=== PATIENT | female | born 1950 | race Caucasian/White ===

== ENCOUNTER 2022-09-25 09:45 | Outpatient (RCR) | payer OTHER, SELFPAY ==
--- NOTE | 2022-07-25 17:05 | PT.OIE ---
Current Diagnoses Other chronic pain (07/25/22) Pain in unspecified joint (07/25/22) Myalgia, other site (07/25/22) Visit Care Team Role Provider Type SAMINA Scott Family Provider Non-Staff Primary Care Provider Specialty: Family Practice Address: [address], [address], [place], [address] Email: Tangela Telles MD Attending Provider Non-Staff Referring Provider Specialty: Neurology Address: [address] [place] [address], [id number] Email: Physical Therapy Initial Evaluation PT-OP-A Visit Information Start: 07/25/22 15:08 Freq: Status: Active Protocol: Document 07/25/22 12:00 DCW (Rec: 07/25/22 15:09 DC [id number]) Out-Patient Physical Therapy Visit Information Visit Information Visit Type Initial Evaluation Visit Start Time 12:00 Visit Stop Time 12:45 Total Visit Minutes 45 Visit Number 1 Number of JOURNALISM PROFESSOR Visits 0 Evaluation Information Evaluation Date 07/25/22 PT-OP-B Current Condition Start: 07/25/22 15:08 Freq: Status: Active Protocol: Document 07/25/22 12:00 DCW (Rec: 07/25/22 16:56 [facility] [id number]) Current Condition History of Current Condition Onset Date One year history Current Complaints Leg weakness, shoulder pain, difficulty sleeping History of Current Condition Pt is a 71 year old female presenting to skilled therapy with a one year history of worsening LE weakness, which she then feels like is contributing to her shoulder pain. Pt reports that it all actually began because she has had difficulty finding a good mattress to sleep in, and her old mattress, suddenly about a year ago, began to hurt her body, and she would just be in pain upon getting up in the morning. Since that itme, she has tried six different mattresses, and has not found one that allows her to sleep comfortably. Notes just yesterday she had a sleep number delivered, and after only three hours, she got up to go to the bathroom and could barely move due to full body pain. In addition, she reports a history of vertigo, which is not currently a proble, but she is often very concerned about, and she feels that may contribute to her discomfort lying down. Pt has been sleeping mainly in a recliner since this began. Over this time, she feels the lack of sleep has caused increased weakness in deconditioning in her legs, especially her right leg. This , in turn, has caused her to need to use her UEs to push off of chairs or pull on grab bars to stand up, and she now has more pain and tightness across both of her upper traps . Treatment Goals Patient/Caregiver Goals Improve LE strength, decrease UE pain, improve sleep PT-OP-C Subjective Start: 07/25/22 15:08 Freq: Status: Active Protocol: Document 07/25/22 12:00 DCW (Rec: 07/25/22 15:15 DCW [id number]) OP-PT Subjective Patient Comments Patient Comments I really think if I just got a bed that worked for me, it would fix most of my problems. Patient Reported Progress Worse Patient Questionnaires Lower Extremity Functional Scale LEFS Score 29/80 = 36.25% LEFS Impairment 60 to 79% Impaired (Score 17- 31) OP-PT Pain Assessment Pain Assessment Grid Paper Pain Assessment Grid Completed Yes Location Bilateral Upper Shoulder Intensity 3 Scale Used Numeric (0 - 10) Right Lateral Leg Intensity 4 Scale Used Numeric (0 - 10) PT-OP-F Manual Assessment Start: 07/25/22 15:08 Freq: Status: Active Protocol: Document 07/25/22 12:00 DCW (Rec: 07/25/22 16:56 DCW [id number]) Manual Assessments Soft Tissue Assessment Soft Tissue Mobility Assessment Pt has what appears to be fairly severe muscle atrophy in a very specific area around the lateral head of her proximal gastroc. Additionally presents with significant tone R>L bilateral upper trap with tenderness to palpation 2 /4: Pain with wincing PT-OP-M Strength Start: 07/25/22 15:08 Freq: Status: Active Protocol: Document 07/25/22 12:00 DCW (Rec: 07/25/22 16:56 DCW [id number]) Hip Strength Hip Manual Muscle Testing Right Flexion (L2) 4- Good- Abduction 4- Good- Adduction 4- Good- Left Flexion (L2) 4 Good Abduction 4 Good Adduction 4 Good Knee Strength Knee Manual Muscle Testing Right Flexion (S2) 4- Good- Extension (L3) 4- Good- Left Flexion (S2) 4+ Good+ Extension (L3) 4+ Good+ PT-OP-Q Treatments Start: 07/25/22 15:08 Freq: Status: Active Protocol: Document 07/25/22 12:00 DCW (Rec: 07/25/22 16:56 DCW [id number]) Therapeutic Exercises Sitting Exercises Upper trap Sitting Exercise Name Upper trap stretch - lateral flexion Side bilateral PT-OP-T Assessment and Plan Start: 07/25/22 15:08 Freq: Status: Active Protocol: Document 07/25/22 12:00 DCW (Rec: 07/25/22 17:05 DCW [id number]) Physical Therapy Assessment Rehab Potential Rehabilitation Potential Good Evaluation Complexity Number of Personal Factors/Comorbidities 1-2 Number of Body Systems Impaired 1-2 Clinical Presentation at Evaluation Unstable Impairments Impairments Functional Activities, Functional Mobility,Pain,ROM, Soft Tissue Mobility,Strength Goals Two Impairment Pt unable to perform sit<-> stand without UE assistance Technician Trainee Goal (LTG) Pt to perform sit<->stand without UE assist 5x in 20 seconds in order to show decreased reliance on UEs during transfers to assist in decreasing forceful motions through her shoulders. LTG Duration 09/24/22 One Impairment Pt does not have an appropriate home exercise program Short Term Goal (STG) Pt to be independent and compliant with an appropriate HEP STG Duration 08/24/22 Assessment Summary Assessment Pt presents with a few unusual complaints, mainly involving difficulty finding a mattress and difficulty sleeping, but does show R LE weakness, an unusual pattern of potential atrophy in her proximal lateral gastroc, and increased upper trap tone bilaterally. It appears that her LE weakness has resulted in her overuse of her UEs in order to perform sit<->stand transfers . Pt should benefit from skilled therapy focusing on LE strengthening, STM, and stretching to decrease upper trap tone. Physical Therapy Plan Frequency and Duration Frequency of Treatment 1-2x/week Duration of Treatment Two months Plan of Care Start Date 07/25/22 Plan of Care End Date 09/24/22 Therapeutic Interventions Therapeutic Interventions Aquatic Therapy,Home Exercise Program,Joint Mobilizations, Manual Therapy,Neuromuscular Re-education,Patient/Caregiver Education,Self-Care/Home Management,Soft Tissue Mobilization,Therapeutic Activities,Therapeutic Exercises Modalities Cold Pack/Ice Massage,Electric Stimulation,Hot Packs, Ultrasound Next Visit Focus/Plan Next Note Type Treatment Note Next Visit Plan LE strengthening with focus on quads and glutes, UT tone management
--- NOTE | 2022-07-25 17:06 | PT.OPPOC ---
Physical, Occupational & Speech Therapy At [facility] Current Diagnoses Other chronic pain (07/25/22) Pain in unspecified joint (07/25/22) Myalgia, other site (07/25/22) Visit Care Team Role Provider Type SAMINA Scott Family Provider Non-Staff Primary Care Provider Specialty: Family Practice Address: [address] [place] [address], [address], [place], [address] Email: Tangela Telles MD Attending Provider Non-Staff Referring Provider Specialty: Neurology Address: [address] [place] [address], [address] Email: Plan Of Care PT-OP-T Assessment and Plan Start: 07/25/22 15:08 Freq: Status: Active Protocol: Document 07/25/22 12:00 DCW (Rec: 07/25/22 17:05 DCW [id number]) Physical Therapy Assessment Rehab Potential Rehabilitation Potential Good Evaluation Complexity Number of Personal Factors/Comorbidities 1-2 Number of Body Systems Impaired 1-2 Clinical Presentation at Evaluation Unstable Impairments Impairments Functional Activities, Functional Mobility,Pain,ROM, Soft Tissue Mobility,Strength Goals Two Impairment Pt unable to perform sit<-> stand without UE assistance Airport Utility Worker Goal (LTG) Pt to perform sit<->stand without UE assist 5x in 20 seconds in order to show decreased reliance on UEs during transfers to assist in decreasing forceful motions through her shoulders. LTG Duration 09/24/22 One Impairment Pt does not have an appropriate home exercise program Short Term Goal (STG) Pt to be independent and compliant with an appropriate HEP STG Duration 08/24/22 Assessment Summary Assessment Pt presents with a few unusual complaints, mainly involving difficulty finding a mattress and difficulty sleeping, but does show R LE weakness, an unusual pattern of potential atrophy in her proximal lateral gastroc, and increased upper trap tone bilaterally. It appears that her LE weakness has resulted in her overuse of her UEs in order to perform sit<->stand transfers . Pt should benefit from skilled therapy focusing on LE strengthening, STM, and stretching to decrease upper trap tone. Physical Therapy Plan Frequency and Duration Frequency of Treatment 1-2x/week Duration of Treatment Two months Plan of Care Start Date 07/25/22 Plan of Care End Date 09/24/22 Therapeutic Interventions Therapeutic Interventions Aquatic Therapy,Home Exercise Program,Joint Mobilizations, Manual Therapy,Neuromuscular Re-education,Patient/Caregiver Education,Self-Care/Home Management,Soft Tissue Mobilization,Therapeutic Activities,Therapeutic Exercises Modalities Cold Pack/Ice Massage,Electric Stimulation,Hot Packs, Ultrasound Next Visit Focus/Plan Next Note Type Treatment Note Next Visit Plan LE strengthening with focus on quads and glutes, UT tone management Plan of Care Dates Plan of Care Start Date 07/25/22 Plan of Care End Date 09/24/22 Electronically Signed by: Joss Pickens, PT 07/25/22 4769 If you are in agreement with this Plan of Care, please return a signed and dated copy. I have reviewed this Plan of Care and certify that the skilled therapy services above are required to meet the patient?s needs. Physician Signature Date Printed Name and Credentials Clinical Instructor Signature Printed Name and Credentials
--- NOTE | 2022-07-29 10:30 | PT.OTN ---
Current Diagnoses Other chronic pain (07/29/22) Pain in unspecified joint (07/29/22) Myalgia, other site (07/29/22) Physical Therapy Treatment Note PT-OP-A Visit Information Start: 07/25/22 15:08 Freq: Status: Active Protocol: Document 07/29/22 09:45 DCW (Rec: 07/29/22 10:30 DCW [id number]) Out-Patient Physical Therapy Visit Information Visit Information Visit Type Treatment Note Visit Start Time 09:45 Visit Stop Time 10:30 Total Visit Minutes 45 Visit Number 2 Number of PROPERTY CARETAKER Visits 0 Evaluation Information Evaluation Date 07/25/22 PT-OP-B Current Condition Start: 07/25/22 15:08 Freq: Status: Active Protocol: Document 07/25/22 12:00 DCW (Rec: 07/25/22 16:56 DCW [id number]) Current Condition History of Current Condition Onset Date One year history Current Complaints Leg weakness, shoulder pain, difficulty sleeping History of Current Condition Pt is a 71 year old female presenting to skilled therapy with a one year history of worsening LE weakness, which she then feels like is contributing to her shoulder pain. Pt reports that it all actually began because she has had difficulty finding a good mattress to sleep in, and her old mattress, suddenly about a year ago, began to hurt her body, and she would just be in pain upon getting up in the morning. Since that itme, she has tried six different mattresses, and has not found one that allows her to sleep comfortably. Notes just yesterday she had a sleep number delivered, and after only three hours, she got up to go to the bathroom and could barely move due to full body pain. In addition, she reports a history of vertigo, which is not currently a proble, but she is often very concerned about, and she feels that may contribute to her discomfort lying down. Pt has been sleeping mainly in a recliner since this began. Over this time, she feels the lack of sleep has caused increased weakness in deconditioning in her legs, especially her right leg. This , in turn, has caused her to need to use her UEs to push off of chairs or pull on grab bars to stand up, and she now has more pain and tightness across both of her upper traps . Treatment Goals Patient/Caregiver Goals Improve LE strength, decrease UE pain, improve sleep PT-OP-C Subjective Start: 07/25/22 15:08 Freq: Status: Active Protocol: Document 07/29/22 09:45 DCW (Rec: 07/29/22 10:30 DCW [id number]) OP-PT Subjective Patient Comments Patient Comments Pt still having problems with her mattress. PT-OP-F Manual Assessment Start: 07/25/22 15:08 Freq: Status: Active Protocol: Document 07/25/22 12:00 DCW (Rec: 07/25/22 16:56 DCW [id number]) Manual Assessments Soft Tissue Assessment Soft Tissue Mobility Assessment Pt has what appears to be fairly severe muscle atrophy in a very specific area around the lateral head of her proximal gastroc. Additionally presents with significant tone R>L bilateral upper trap with tenderness to palpation 2 /4: Pain with wincing PT-OP-M Strength Start: 07/25/22 15:08 Freq: Status: Active Protocol: Document 07/25/22 12:00 DCW (Rec: 07/25/22 16:56 DCW [id number]) Hip Strength Hip Manual Muscle Testing Right Flexion (L2) 4- Good- Abduction 4- Good- Adduction 4- Good- Left Flexion (L2) 4 Good Abduction 4 Good Adduction 4 Good Knee Strength Knee Manual Muscle Testing Right Flexion (S2) 4- Good- Extension (L3) 4- Good- Left Flexion (S2) 4+ Good+ Extension (L3) 4+ Good+ PT-OP-Q Treatments Start: 07/25/22 15:08 Freq: Status: Active Protocol: Document 07/29/22 09:45 DCW (Rec: 07/29/22 10:30 DCW [id number]) Cardio Equipment Recumbent Elliptical (Biodex) Duration (Minutes) 5 Resistance 5 Seat Position 10 Gym Equipment Shuttle Recovery Bilateral Heel Raises Resistance 62# Unilateral Squats Resistance 37# Shuttle Recovery Platform Stable Reps/Time x10 Bilateral Squats Resistance 75# Shuttle Recovery Platform Stable Therapeutic Exercises Standing Exercises Hip Extension Standing Exercise Name Extension Side bilateral Resistance Red Reps/Minutes 2x10 Other Exercises Resisted Ambulation Other Exercise Name Resisted side-stepping, Forward/Backward Resistance Red Manual Therapy Treatment Soft Tissue Mobilization Upper Trap Body Location B UT Mobilization Type Strumming,Sustained Pressure, Trigger Point Release Body Position Semi-reclined PT-OP-T Assessment and Plan Start: 07/25/22 15:08 Freq: Status: Active Protocol: Document 07/29/22 09:45 DCW (Rec: 07/29/22 10:30 DCW [id number]) Physical Therapy Assessment Impairments Impairments Functional Activities, Functional Mobility,Pain,ROM, Soft Tissue Mobility,Strength Goals Two Impairment Pt unable to perform sit<-> stand without UE assistance Temple Meat Cutter Goal (LTG) Pt to perform sit<->stand without UE assist 5x in 20 seconds in order to show decreased reliance on UEs during transfers to assist in decreasing forceful motions through her shoulders. LTG Duration 09/24/22 One Impairment Pt does not have an appropriate home exercise program Short Term Goal (STG) Pt to be independent and compliant with an appropriate HEP STG Duration 08/24/22 Assessment Summary Assessment Pt reported some difficulty with most TherEx activities, but was able to fully perform them during session. Addition of self-STM to UT and heel raises to HEP. Physical Therapy Plan Frequency and Duration Frequency of Treatment 1-2x/week Duration of Treatment Two months Plan of Care Start Date 07/25/22 Plan of Care End Date 09/24/22 Therapeutic Interventions Therapeutic Interventions Aquatic Therapy,Home Exercise Program,Joint Mobilizations, Manual Therapy,Neuromuscular Re-education,Patient/Caregiver Education,Self-Care/Home Management,Soft Tissue Mobilization,Therapeutic Activities,Therapeutic Exercises Modalities Cold Pack/Ice Massage,Electric Stimulation,Hot Packs, Ultrasound Next Visit Focus/Plan Next Note Type Treatment Note Next Visit Plan LE strengthening with focus on quads and glutes, UT tone management
--- NOTE | 2022-07-31 10:29 | PT.OTN ---
Current Diagnoses Other chronic pain (07/31/22) Pain in unspecified joint (07/31/22) Myalgia, other site (07/31/22) Physical Therapy Treatment Note PT-OP-A Visit Information Start: 07/25/22 15:08 Freq: Status: Active Protocol: Document 07/31/22 09:45 DCW (Rec: 07/31/22 10:29 DCW [id number]) Out-Patient Physical Therapy Visit Information Visit Information Visit Type Treatment Note Visit Start Time 09:45 Visit Stop Time 10:30 Total Visit Minutes 45 Visit Number 3 Number of PYTHON ARCHITECT Visits 0 Evaluation Information Evaluation Date 07/25/22 PT-OP-B Current Condition Start: 07/25/22 15:08 Freq: Status: Active Protocol: Document 07/25/22 12:00 DCW (Rec: 07/25/22 16:56 DCW [id number]) Current Condition History of Current Condition Onset Date One year history Current Complaints Leg weakness, shoulder pain, difficulty sleeping History of Current Condition Pt is a 71 year old female presenting to skilled therapy with a one year history of worsening LE weakness, which she then feels like is contributing to her shoulder pain. Pt reports that it all actually began because she has had difficulty finding a good mattress to sleep in, and her old mattress, suddenly about a year ago, began to hurt her body, and she would just be in pain upon getting up in the morning. Since that itme, she has tried six different mattresses, and has not found one that allows her to sleep comfortably. Notes just yesterday she had a sleep number delivered, and after only three hours, she got up to go to the bathroom and could barely move due to full body pain. In addition, she reports a history of vertigo, which is not currently a proble, but she is often very concerned about, and she feels that may contribute to her discomfort lying down. Pt has been sleeping mainly in a recliner since this began. Over this time, she feels the lack of sleep has caused increased weakness in deconditioning in her legs, especially her right leg. This , in turn, has caused her to need to use her UEs to push off of chairs or pull on grab bars to stand up, and she now has more pain and tightness across both of her upper traps . Treatment Goals Patient/Caregiver Goals Improve LE strength, decrease UE pain, improve sleep PT-OP-C Subjective Start: 07/25/22 15:08 Freq: Status: Active Protocol: Document 07/31/22 09:45 DCW (Rec: 07/31/22 10:29 DCW [id number]) OP-PT Subjective Patient Comments Patient Comments Pt notes her shoulders were pretty sore following her last visit due to the [facility], she has noticed tingling in her L arm . PT-OP-F Manual Assessment Start: 07/25/22 15:08 Freq: Status: Active Protocol: Document 07/25/22 12:00 DCW (Rec: 07/25/22 16:56 DCW [id number]) Manual Assessments Soft Tissue Assessment Soft Tissue Mobility Assessment Pt has what appears to be fairly severe muscle atrophy in a very specific area around the lateral head of her proximal gastroc. Additionally presents with significant tone R>L bilateral upper trap with tenderness to palpation 2 /4: Pain with wincing PT-OP-M Strength Start: 07/25/22 15:08 Freq: Status: Active Protocol: Document 07/25/22 12:00 DCW (Rec: 07/25/22 16:56 DCW [id number]) Hip Strength Hip Manual Muscle Testing Right Flexion (L2) 4- Good- Abduction 4- Good- Adduction 4- Good- Left Flexion (L2) 4 Good Abduction 4 Good Adduction 4 Good Knee Strength Knee Manual Muscle Testing Right Flexion (S2) 4- Good- Extension (L3) 4- Good- Left Flexion (S2) 4+ Good+ Extension (L3) 4+ Good+ PT-OP-Q Treatments Start: 07/25/22 15:08 Freq: Status: Active Protocol: Document 07/31/22 09:45 DCW (Rec: 07/31/22 10:29 DCW [id number]) Cardio Equipment Recumbent Elliptical (Biodex) Duration (Minutes) 5 Resistance 5 Seat Position 10 Gym Equipment Shuttle Recovery Bilateral Heel Raises Resistance 62# Unilateral Squats Resistance 37# Shuttle Recovery Platform Stable Reps/Time x10 Bilateral Squats Resistance 75# Shuttle Recovery Platform Stable Therapeutic Exercises Standing Exercises Step-ups Standing Exercise Name Step-ups Side bilateral Equipment Used 6 step Toe-taps Standing Exercise Name Toe-taps Side bilateral Resistance 5# Equipment Used 6 step Hip Extension Standing Exercise Name Extension Side bilateral Resistance Red Reps/Minutes 2x10 Other Exercises Resisted Ambulation Other Exercise Name Resisted side-stepping, Forward/Backward Resistance Red Manual Therapy Treatment Soft Tissue Mobilization Upper Trap Body Location B UT Mobilization Type Strumming,Sustained Pressure, Trigger Point Release Intensity/Depth Superficial Body Position Semi-reclined PT-OP-T Assessment and Plan Start: 07/25/22 15:08 Freq: Status: Active Protocol: Document 07/31/22 09:45 DCW (Rec: 07/31/22 10:29 DCW [id number]) Physical Therapy Assessment Impairments Impairments Functional Activities, Functional Mobility,Pain,ROM, Soft Tissue Mobility,Strength Goals Two Impairment Pt unable to perform sit<-> stand without UE assistance Mcc Goal (LTG) Pt to perform sit<->stand without UE assist 5x in 20 seconds in order to show decreased reliance on UEs during transfers to assist in decreasing forceful motions through her shoulders. LTG Duration 09/24/22 One Impairment Pt does not have an appropriate home exercise program Short Term Goal (STG) Pt to be independent and compliant with an appropriate HEP STG Duration 08/24/22 Assessment Summary Assessment Much more gentle STM provided today, pt appeared happier with today's session. Physical Therapy Plan Frequency and Duration Frequency of Treatment 1-2x/week Duration of Treatment Two months Plan of Care Start Date 07/25/22 Plan of Care End Date 09/24/22 Therapeutic Interventions Therapeutic Interventions Aquatic Therapy,Home Exercise Program,Joint Mobilizations, Manual Therapy,Neuromuscular Re-education,Patient/Caregiver Education,Self-Care/Home Management,Soft Tissue Mobilization,Therapeutic Activities,Therapeutic Exercises Modalities Cold Pack/Ice Massage,Electric Stimulation,Hot Packs, Ultrasound Next Visit Focus/Plan Next Note Type Treatment Note Next Visit Plan LE strengthening with focus on quads and glutes, UT tone management
--- NOTE | 2022-08-07 10:31 | PT.OTN ---
Current Diagnoses Other chronic pain (08/07/22) Pain in unspecified joint (08/07/22) Myalgia, other site (08/07/22) Physical Therapy Treatment Note PT-OP-A Visit Information Start: 07/25/22 15:08 Freq: Status: Active Protocol: Document 08/07/22 09:45 DCW (Rec: 08/07/22 10:31 DCW [id number]) Out-Patient Physical Therapy Visit Information Visit Information Visit Type Treatment Note Visit Start Time 09:45 Visit Stop Time 10:30 Total Visit Minutes 45 Visit Number 4 Number of LAUNCH CHECK OUT Visits 0 Evaluation Information Evaluation Date 07/25/22 PT-OP-B Current Condition Start: 07/25/22 15:08 Freq: Status: Active Protocol: Document 07/25/22 12:00 DCW (Rec: 07/25/22 16:56 DCW [id number]) Current Condition History of Current Condition Onset Date One year history Current Complaints Leg weakness, shoulder pain, difficulty sleeping History of Current Condition Pt is a 71 year old female presenting to skilled therapy with a one year history of worsening LE weakness, which she then feels like is contributing to her shoulder pain. Pt reports that it all actually began because she has had difficulty finding a good mattress to sleep in, and her old mattress, suddenly about a year ago, began to hurt her body, and she would just be in pain upon getting up in the morning. Since that itme, she has tried six different mattresses, and has not found one that allows her to sleep comfortably. Notes just yesterday she had a sleep number delivered, and after only three hours, she got up to go to the bathroom and could barely move due to full body pain. In addition, she reports a history of vertigo, which is not currently a proble, but she is often very concerned about, and she feels that may contribute to her discomfort lying down. Pt has been sleeping mainly in a recliner since this began. Over this time, she feels the lack of sleep has caused increased weakness in deconditioning in her legs, especially her right leg. This , in turn, has caused her to need to use her UEs to push off of chairs or pull on grab bars to stand up, and she now has more pain and tightness across both of her upper traps . Treatment Goals Patient/Caregiver Goals Improve LE strength, decrease UE pain, improve sleep PT-OP-C Subjective Start: 07/25/22 15:08 Freq: Status: Active Protocol: Document 08/07/22 09:45 DCW (Rec: 08/07/22 10:31 DCW [id number]) OP-PT Subjective Patient Comments Patient Comments My left arm has been screaming in pain, and I mean screaming, for the last week. PT-OP-F Manual Assessment Start: 07/25/22 15:08 Freq: Status: Active Protocol: Document 07/25/22 12:00 DCW (Rec: 07/25/22 16:56 DCW [id number]) Manual Assessments Soft Tissue Assessment Soft Tissue Mobility Assessment Pt has what appears to be fairly severe muscle atrophy in a very specific area around the lateral head of her proximal gastroc. Additionally presents with significant tone R>L bilateral upper trap with tenderness to palpation 2 /4: Pain with wincing PT-OP-M Strength Start: 07/25/22 15:08 Freq: Status: Active Protocol: Document 07/25/22 12:00 DCW (Rec: 07/25/22 16:56 DCW [id number]) Hip Strength Hip Manual Muscle Testing Right Flexion (L2) 4- Good- Abduction 4- Good- Adduction 4- Good- Left Flexion (L2) 4 Good Abduction 4 Good Adduction 4 Good Knee Strength Knee Manual Muscle Testing Right Flexion (S2) 4- Good- Extension (L3) 4- Good- Left Flexion (S2) 4+ Good+ Extension (L3) 4+ Good+ PT-OP-Q Treatments Start: 07/25/22 15:08 Freq: Status: Active Protocol: Document 08/07/22 09:45 DCW (Rec: 08/07/22 10:31 NMW [id number]) Cardio Equipment Recumbent Elliptical (Biodex) Duration (Minutes) 5 Resistance 5 Seat Position 10 Gym Equipment Shuttle Recovery Bilateral Heel Raises Resistance 62# Reps/Time x20 Unilateral Squats Resistance 50# Shuttle Recovery Platform Stable Reps/Time x10 Bilateral Squats Resistance 87# Shuttle Recovery Platform Stable Manual Therapy Treatment Soft Tissue Mobilization Upper Trap Body Location B UT Mobilization Type Strumming,Sustained Pressure, Trigger Point Release Intensity/Depth Superficial Body Position Semi-reclined Joint Mobilizations Knee Joint R knee Direction P->A Grade III Body Position Hooklying PT-OP-T Assessment and Plan Start: 07/25/22 15:08 Freq: Status: Active Protocol: Document 08/07/22 09:45 DCW (Rec: 08/07/22 10:31 DCW [id number]) Physical Therapy Assessment Impairments Impairments Functional Activities, Functional Mobility,Pain,ROM, Soft Tissue Mobility,Strength Goals Two Impairment Pt unable to perform sit<-> stand without UE assistance Longterm Goal (LTG) Pt to perform sit<->stand without UE assist 5x in 20 seconds in order to show decreased reliance on UEs during transfers to assist in decreasing forceful motions through her shoulders. LTG Duration 09/24/22 One Impairment Pt does not have an appropriate home exercise program Short Term Goal (STG) Pt to be independent and compliant with an appropriate HEP STG Duration 08/24/22 Assessment Summary Assessment Pt improving with her sit<-> stands, using UEs less frequently. Also decreased discomfort in her right calf. Physical Therapy Plan Frequency and Duration Frequency of Treatment 1-2x/week Plan of Care Start Date 07/25/22 Plan of Care End Date 09/24/22 Therapeutic Interventions Therapeutic Interventions Aquatic Therapy,Home Exercise Program,Joint Mobilizations, Manual Therapy,Neuromuscular Re-education,Patient/Caregiver Education,Self-Care/Home Management,Soft Tissue Mobilization,Therapeutic Activities,Therapeutic Exercises Modalities Cold Pack/Ice Massage,Electric Stimulation,Hot Packs, Ultrasound Next Visit Focus/Plan Next Note Type Treatment Note Next Visit Plan LE strengthening with focus on quads and glutes, UT tone management
--- NOTE | 2022-08-12 10:33 | PT.OTN ---
Current Diagnoses Other chronic pain (08/12/22) Pain in unspecified joint (08/12/22) Myalgia, other site (08/12/22) Physical Therapy Treatment Note PT-OP-A Visit Information Start: 07/25/22 15:08 Freq: Status: Active Protocol: Document 08/12/22 09:45 DCW (Rec: 08/12/22 10:32 DCW [id number]) Out-Patient Physical Therapy Visit Information Visit Information Visit Type Treatment Note Visit Start Time 09:45 Visit Stop Time 10:30 Total Visit Minutes 45 Visit Number 5 Number of BIOTECHNOLOGIST Visits 0 Evaluation Information Evaluation Date 07/25/22 PT-OP-B Current Condition Start: 07/25/22 15:08 Freq: Status: Active Protocol: Document 07/25/22 12:00 DCW (Rec: 07/25/22 16:56 DCW [id number]) Current Condition History of Current Condition Onset Date One year history Current Complaints Leg weakness, shoulder pain, difficulty sleeping History of Current Condition Pt is a 71 year old female presenting to skilled therapy with a one year history of worsening LE weakness, which she then feels like is contributing to her shoulder pain. Pt reports that it all actually began because she has had difficulty finding a good mattress to sleep in, and her old mattress, suddenly about a year ago, began to hurt her body, and she would just be in pain upon getting up in the morning. Since that itme, she has tried six different mattresses, and has not found one that allows her to sleep comfortably. Notes just yesterday she had a sleep number delivered, and after only three hours, she got up to go to the bathroom and could barely move due to full body pain. In addition, she reports a history of vertigo, which is not currently a proble, but she is often very concerned about, and she feels that may contribute to her discomfort lying down. Pt has been sleeping mainly in a recliner since this began. Over this time, she feels the lack of sleep has caused increased weakness in deconditioning in her legs, especially her right leg. This , in turn, has caused her to need to use her UEs to push off of chairs or pull on grab bars to stand up, and she now has more pain and tightness across both of her upper traps . Treatment Goals Patient/Caregiver Goals Improve LE strength, decrease UE pain, improve sleep PT-OP-C Subjective Start: 07/25/22 15:08 Freq: Status: Active Protocol: Document 08/12/22 09:45 DCW (Rec: 08/12/22 10:32 DCW [id number]) OP-PT Subjective Patient Comments Patient Comments Pt notes she has increased muscle mass in right lateral calf. Neck on the left side following last week was excruciating, felt better after a few days. Patient Questionnaires Lower Extremity Functional Scale LEFS Score 34/80 = 42.5% LEFS Impairment 60 to 79% Impaired (Score 17- 31) PT-OP-F Manual Assessment Start: 07/25/22 15:08 Freq: Status: Active Protocol: Document 07/25/22 12:00 DCW (Rec: 07/25/22 16:56 DCW [id number]) Manual Assessments Soft Tissue Assessment Soft Tissue Mobility Assessment Pt has what appears to be fairly severe muscle atrophy in a very specific area around the lateral head of her proximal gastroc. Additionally presents with significant tone R>L bilateral upper trap with tenderness to palpation 2 /4: Pain with wincing PT-OP-M Strength Start: 07/25/22 15:08 Freq: Status: Active Protocol: Document 07/25/22 12:00 DCW (Rec: 07/25/22 16:56 DCW [id number]) Hip Strength Hip Manual Muscle Testing Right Flexion (L2) 4- Good- Abduction 4- Good- Adduction 4- Good- Left Flexion (L2) 4 Good Abduction 4 Good Adduction 4 Good Knee Strength Knee Manual Muscle Testing Right Flexion (S2) 4- Good- Extension (L3) 4- Good- Left Flexion (S2) 4+ Good+ Extension (L3) 4+ Good+ PT-OP-Q Treatments Start: 07/25/22 15:08 Freq: Status: Active Protocol: Document 08/12/22 09:45 DCW (Rec: 08/12/22 10:32 DCW [id number]) Cardio Equipment Recumbent Elliptical (Biodex) Duration (Minutes) 5 Resistance 5 Seat Position 10 Gym Equipment Shuttle Recovery Bilateral Heel Raises Resistance 62# Reps/Time x20 Unilateral Squats Resistance 50# Shuttle Recovery Platform Stable Reps/Time x15 Bilateral Squats Resistance 87# Shuttle Recovery Platform Stable Reps/Time x20 Therapeutic Exercises Standing Exercises Toe-taps Standing Exercise Name Toe-taps Side bilateral Resistance 5# Equipment Used 6 step Therapeutic Activity Therapeutic Activity Sit to Stand Name StS Comments Limit UE use, repeated VCs for positioning Neuro Re-Education Treatment Balance Activities Tandem stance Details Tandem stance SLS Details SLS Surface Blue foam PT-OP-T Assessment and Plan Start: 07/25/22 15:08 Freq: Status: Active Protocol: Document 08/12/22 09:45 DCW (Rec: 08/12/22 10:32 DCW [id number]) Physical Therapy Assessment Impairments Impairments Functional Activities, Functional Mobility,Pain,ROM, Soft Tissue Mobility,Strength Goals Two Impairment Pt unable to perform sit<-> stand without UE assistance Can Dragger Goal (LTG) Pt to perform sit<->stand without UE assist 5x in 20 seconds in order to show decreased reliance on UEs during transfers to assist in decreasing forceful motions through her shoulders. LTG Duration 09/24/22 One Impairment Pt does not have an appropriate home exercise program Short Term Goal (STG) Pt to be independent and compliant with an appropriate HEP STG Duration 08/24/22 Assessment Summary Assessment Worked more on sit<->stands today, pt had difficulty with right knee flexion more than 90?, reports difficulty/pain trying to get in position. Continue with hip and knee strengthening, as well as practice floor transfers. Physical Therapy Plan Frequency and Duration Frequency of Treatment 1-2x/week Plan of Care Start Date 07/25/22 Plan of Care End Date 09/24/22 Therapeutic Interventions Therapeutic Interventions Aquatic Therapy,Home Exercise Program,Joint Mobilizations, Manual Therapy,Neuromuscular Re-education,Patient/Caregiver Education,Self-Care/Home Management,Soft Tissue Mobilization,Therapeutic Activities,Therapeutic Exercises Modalities Cold Pack/Ice Massage,Electric Stimulation,Hot Packs, Ultrasound Next Visit Focus/Plan Next Note Type Treatment Note Next Visit Plan LE strengthening with focus on quads and glutes, UT tone management
--- NOTE | 2022-08-19 10:28 | PT.OTN ---
Current Diagnoses Other chronic pain (08/19/22) Pain in unspecified joint (08/19/22) Myalgia, other site (08/19/22) Physical Therapy Treatment Note PT-OP-A Visit Information Start: 07/25/22 15:08 Freq: Status: Active Protocol: Document 08/19/22 09:45 DCW (Rec: 08/19/22 10:28 DCW [id number]) Out-Patient Physical Therapy Visit Information Visit Information Visit Type Treatment Note Visit Start Time 09:45 Visit Stop Time 10:30 Total Visit Minutes 45 Visit Number 6 Number of INTERIOR PANELER Visits 0 Evaluation Information Evaluation Date 07/25/22 PT-OP-B Current Condition Start: 07/25/22 15:08 Freq: Status: Active Protocol: Document 07/25/22 12:00 DCW (Rec: 07/25/22 16:56 DCW [id number]) Current Condition History of Current Condition Onset Date One year history Current Complaints Leg weakness, shoulder pain, difficulty sleeping History of Current Condition Pt is a 71 year old female presenting to skilled therapy with a one year history of worsening LE weakness, which she then feels like is contributing to her shoulder pain. Pt reports that it all actually began because she has had difficulty finding a good mattress to sleep in, and her old mattress, suddenly about a year ago, began to hurt her body, and she would just be in pain upon getting up in the morning. Since that itme, she has tried six different mattresses, and has not found one that allows her to sleep comfortably. Notes just yesterday she had a sleep number delivered, and after only three hours, she got up to go to the bathroom and could barely move due to full body pain. In addition, she reports a history of vertigo, which is not currently a proble, but she is often very concerned about, and she feels that may contribute to her discomfort lying down. Pt has been sleeping mainly in a recliner since this began. Over this time, she feels the lack of sleep has caused increased weakness in deconditioning in her legs, especially her right leg. This , in turn, has caused her to need to use her UEs to push off of chairs or pull on grab bars to stand up, and she now has more pain and tightness across both of her upper traps . Treatment Goals Patient/Caregiver Goals Improve LE strength, decrease UE pain, improve sleep PT-OP-C Subjective Start: 07/25/22 15:08 Freq: Status: Active Protocol: Document 08/19/22 09:45 DCW (Rec: 08/19/22 10:28 DCW [id number]) OP-PT Subjective Patient Comments Patient Comments Pt feeling okay today. Right knee bothers her a bit more today. PT-OP-F Manual Assessment Start: 07/25/22 15:08 Freq: Status: Active Protocol: Document 07/25/22 12:00 DCW (Rec: 07/25/22 16:56 DCW [id number]) Manual Assessments Soft Tissue Assessment Soft Tissue Mobility Assessment Pt has what appears to be fairly severe muscle atrophy in a very specific area around the lateral head of her proximal gastroc. Additionally presents with significant tone R>L bilateral upper trap with tenderness to palpation 2 /4: Pain with wincing PT-OP-M Strength Start: 07/25/22 15:08 Freq: Status: Active Protocol: Document 07/25/22 12:00 DCW (Rec: 07/25/22 16:56 DCW [id number]) Hip Strength Hip Manual Muscle Testing Right Flexion (L2) 4- Good- Abduction 4- Good- Adduction 4- Good- Left Flexion (L2) 4 Good Abduction 4 Good Adduction 4 Good Knee Strength Knee Manual Muscle Testing Right Flexion (S2) 4- Good- Extension (L3) 4- Good- Left Flexion (S2) 4+ Good+ Extension (L3) 4+ Good+ PT-OP-Q Treatments Start: 07/25/22 15:08 Freq: Status: Active Protocol: Document 08/19/22 09:45 DCW (Rec: 08/19/22 10:28 DCW [id number]) Cardio Equipment Recumbent Bicycle Duration (Minutes) 5 Resistance 5 Seat Position 10 Gym Equipment Shuttle Recovery Bilateral Heel Raises Resistance 75# Reps/Time x25 Unilateral Squats Resistance 50# Shuttle Recovery Platform Stable Reps/Time x25 Bilateral Squats Resistance 87# Shuttle Recovery Platform Stable Reps/Time x25 Therapeutic Exercises Sitting Exercises LAQ Sitting Exercise Name LAQ Side bilateral Resistance 5# Reps/Minutes 2x15 Standing Exercises Hamstring Curls Standing Exercise Name HS Curls Resistance 5# Reps/Minutes 2x15 Hip Abduction Standing Exercise Name Abduction Side bilateral Resistance Red Reps/Minutes 2x15 Step-ups Standing Exercise Name Step-ups Side bilateral Equipment Used 6 step Reps/Minutes x25 Toe-taps Standing Exercise Name Toe-taps Side bilateral Resistance 5# Equipment Used 6 step Reps/Minutes x25 Hip Extension Standing Exercise Name Extension Side bilateral Resistance Red Reps/Minutes 2x15 Therapeutic Activity Therapeutic Activity Sit to Stand Name StS Comments Limit UE use, repeated VCs for positioning Neuro Re-Education Treatment Balance Activities Staggered Stance Details Staggered stance Surface Blue Comments Horizontal head turns Tandem stance Details Tandem stance SLS Details SLS Surface Blue foam PT-OP-T Assessment and Plan Start: 07/25/22 15:08 Freq: Status: Active Protocol: Document 08/19/22 09:45 DCW (Rec: 08/19/22 10:28 DCW [id number]) Physical Therapy Assessment Impairments Impairments Functional Activities, Functional Mobility,Pain,ROM, Soft Tissue Mobility,Strength Goals Two Impairment Pt unable to perform sit<-> stand without UE assistance Senior Living Goal (LTG) Pt to perform sit<->stand without UE assist 5x in 20 seconds in order to show decreased reliance on UEs during transfers to assist in decreasing forceful motions through her shoulders. LTG Duration 09/24/22 One Impairment Pt does not have an appropriate home exercise program Short Term Goal (STG) Pt to be independent and compliant with an appropriate HEP STG Duration 08/24/22 Assessment Summary Assessment Pt showing some good improvement with leg strength and sit<->stands today. Less complaints of pain in knee. Physical Therapy Plan Frequency and Duration Frequency of Treatment 1-2x/week Plan of Care Start Date 07/25/22 Plan of Care End Date 09/24/22 Therapeutic Interventions Therapeutic Interventions Aquatic Therapy,Home Exercise Program,Joint Mobilizations, Manual Therapy,Neuromuscular Re-education,Patient/Caregiver Education,Self-Care/Home Management,Soft Tissue Mobilization,Therapeutic Activities,Therapeutic Exercises Modalities Cold Pack/Ice Massage,Electric Stimulation,Hot Packs, Ultrasound Next Visit Focus/Plan Next Note Type Treatment Note Next Visit Plan LE strengthening with focus on quads and glutes, UT tone management
--- NOTE | 2022-08-29 11:20 | PT.OTN ---
Current Diagnoses Other chronic pain (08/29/22) Pain in unspecified joint (08/29/22) Myalgia, other site (08/29/22) Physical Therapy Treatment Note PT-OP-A Visit Information Start: 07/25/22 15:08 Freq: Status: Active Protocol: Document 08/29/22 10:35 SP (Rec: 08/29/22 11:44 SP [id number]) Out-Patient Physical Therapy Visit Information Visit Information Visit Type Treatment Note Visit Start Time 10:35 Visit Stop Time 11:20 Total Visit Minutes 45 Visit Number 7 Number of CRITICAL CARE TECHNICIAN Visits 1 Evaluation Information Evaluation Date 07/25/22 PT-OP-B Current Condition Start: 07/25/22 15:08 Freq: Status: Active Protocol: Document 07/25/22 12:00 DCW (Rec: 07/25/22 16:56 DCW [id number]) Current Condition History of Current Condition Onset Date One year history Current Complaints Leg weakness, shoulder pain, difficulty sleeping History of Current Condition Pt is a 71 year old female presenting to skilled therapy with a one year history of worsening LE weakness, which she then feels like is contributing to her shoulder pain. Pt reports that it all actually began because she has had difficulty finding a good mattress to sleep in, and her old mattress, suddenly about a year ago, began to hurt her body, and she would just be in pain upon getting up in the morning. Since that itme, she has tried six different mattresses, and has not found one that allows her to sleep comfortably. Notes just yesterday she had a sleep number delivered, and after only three hours, she got up to go to the bathroom and could barely move due to full body pain. In addition, she reports a history of vertigo, which is not currently a proble, but she is often very concerned about, and she feels that may contribute to her discomfort lying down. Pt has been sleeping mainly in a recliner since this began. Over this time, she feels the lack of sleep has caused increased weakness in deconditioning in her legs, especially her right leg. This , in turn, has caused her to need to use her UEs to push off of chairs or pull on grab bars to stand up, and she now has more pain and tightness across both of her upper traps . Treatment Goals Patient/Caregiver Goals Improve LE strength, decrease UE pain, improve sleep PT-OP-C Subjective Start: 07/25/22 15:08 Freq: Status: Active Protocol: Document 08/29/22 10:35 SP (Rec: 08/29/22 11:44 SP [id number]) OP-PT Subjective Patient Comments Patient Comments Pt reports compliant with HEP especially use of Tb. She reports tingling in L forearm and what can do to stop. Pt demonstrates forward head, rounded posture and little scapular winging. PT-OP-F Manual Assessment Start: 07/25/22 15:08 Freq: Status: Active Protocol: Document 07/25/22 12:00 DCW (Rec: 07/25/22 16:56 DCW [id number]) Manual Assessments Soft Tissue Assessment Soft Tissue Mobility Assessment Pt has what appears to be fairly severe muscle atrophy in a very specific area around the lateral head of her proximal gastroc. Additionally presents with significant tone R>L bilateral upper trap with tenderness to palpation 2 /4: Pain with wincing PT-OP-M Strength Start: 07/25/22 15:08 Freq: Status: Active Protocol: Document 07/25/22 12:00 DCW (Rec: 07/25/22 16:56 DCW [id number]) Hip Strength Hip Manual Muscle Testing Right Flexion (L2) 4- Good- Abduction 4- Good- Adduction 4- Good- Left Flexion (L2) 4 Good Abduction 4 Good Adduction 4 Good Knee Strength Knee Manual Muscle Testing Right Flexion (S2) 4- Good- Extension (L3) 4- Good- Left Flexion (S2) 4+ Good+ Extension (L3) 4+ Good+ PT-OP-Q Treatments Start: 07/25/22 15:08 Freq: Status: Active Protocol: Document 08/29/22 10:35 SP (Rec: 08/29/22 11:44 SP [id number]) Cardio Equipment Recumbent Stepper (Sci-Fit) Duration (Minutes) 5 Resistance 3 Seat Position 11 Other LEs only, cued 35-45 RPM Therapeutic Exercises Sitting Exercises L shld ER, median nerve glide Sitting Exercise Name assessed posture/ROM ABD/ER Side left Comments deminished tingling in L arm. LAQ Sitting Exercise Name LAQ Side bilateral Resistance 5# Reps/Minutes 2x15, 2 sec hold Comments cued pause hold Standing Exercises wall posture Standing Exercise Name assessment posture Equipment Used reported tingling in L bicep during postural corrections at wall Reps/Minutes 10 sec hold x3 Comments cued LB toward wall, chin nod CS ext toward wall pec stretch Standing Exercise Name added to HEP ( no HO):various angles Resistance doorway BUE Reps/Minutes 20 s x3 Comments more stretch felt LLE forward Hamstring Curls Standing Exercise Name HS Curls Resistance 5# leg wts Reps/Minutes 10 reps, 5 reps before tires Comments cued posturing and knees // Step-ups Standing Exercise Name Step-ups Side bilateral Resistance 5# leg wt Equipment Used 6 step, table nearby contact PRN Reps/Minutes 5 reps x3 sets Comments cued controlled stepping, core fac- Toe-taps Standing Exercise Name Toe-taps Side bilateral Resistance 5# Equipment Used 6 step Reps/Minutes x20 alternating Comments cued soft stepping for core/ hip abd fac- better Other Exercises Resisted Ambulation Other Exercise Name Resisted side-stepping- HEP reviewed Resistance TB #2 loop ankles Reps/Minutes 20 ft x3 laps Comments cued feet //, posture, chin tuck, foot clearance- better Neuro Re-Education Treatment Balance Activities andrade stepping Details fwd: step to, step over step Equipment 6 hurdles Comments pt tends to: L hip ER during R hip hike and circumduction with PF R ankle as clears andrade. Improved awareness post band walk LE and trunk alignment. Self-Care/Home Management Treatment Education Patient Education Pain Management,Posture Other Education Extra time spent seated/ standing posture: elevated, chin nod/CS ext neutral. Recommended shld abd, ER hand behind head and elbow press back to stretch anterior shld assist tingling. Also recommended self STMs to SCM and fontana stretch for home to assist tingling L arm- good feedback response during tx. Didnot give hand outs. PT-OP-T Assessment and Plan Start: 07/25/22 15:08 Freq: Status: Active Protocol: Document 08/29/22 10:35 SP (Rec: 08/29/22 11:44 SP [id number]) Physical Therapy Assessment Goals Two Impairment Pt unable to perform sit<-> stand without UE assistance Longterm Goal (LTG) Pt to perform sit<->stand without UE assist 5x in 20 seconds in order to show decreased reliance on UEs during transfers to assist in decreasing forceful motions through her shoulders. LTG Duration 09/24/22 One Impairment Pt does not have an appropriate home exercise program Short Term Goal (STG) Pt to be independent and compliant with an appropriate HEP STG Duration 08/24/22 Assessment Summary Assessment Pt improved ascend/descend step taps/up and down repeated steps for core/ LE strengthening today. Challenged with RLE hip flexion and DF clearance during andrade stepping. Still has tingling in L forearm when work on posture wall and contact stationary LE wt exercises, responded wellto postural corrections band walk and added pec stretch. Physical Therapy Plan Frequency and Duration Frequency of Treatment 1-2x/week Plan of Care Start Date 07/25/22 Plan of Care End Date 09/24/22 Therapeutic Interventions Therapeutic Interventions Aquatic Therapy,Home Exercise Program,Joint Mobilizations, Manual Therapy,Neuromuscular Re-education,Patient/Caregiver Education,Self-Care/Home Management,Soft Tissue Mobilization,Therapeutic Activities,Therapeutic Exercises Modalities Cold Pack/Ice Massage,Electric Stimulation,Hot Packs, Ultrasound Next Visit Focus/Plan Next Note Type Treatment Note Next Visit Plan Add: R DF and R hip flexor strengthening support form hurdles. Assess if L forearm tingling if postural contributer. POC: LE strengthening with focus on quads and glutes, UT tone management
--- NOTE | 2022-09-02 13:45 | PT.OTN ---
Current Diagnoses Other chronic pain (09/02/22) Pain in unspecified joint (09/02/22) Myalgia, other site (09/02/22) Physical Therapy Treatment Note PT-OP-A Visit Information Start: 07/25/22 15:08 Freq: Status: Active Protocol: Document 09/02/22 13:08 SP (Rec: 09/02/22 13:48 SP [id number]) Out-Patient Physical Therapy Visit Information Visit Information Visit Type Treatment Note Visit Note JUANITO Kemp observed tx and supported BASKET GRADER Carla as needed . Visit Start Time 13:08 Visit Stop Time 13:45 Total Visit Minutes 38 Visit Number 8 Number of BASKET GRADER Visits 2 PT-OP-B Current Condition Start: 07/25/22 15:08 Freq: Status: Active Protocol: Document 07/25/22 12:00 DCW (Rec: 07/25/22 16:56 DCW [id number]) Current Condition History of Current Condition Onset Date One year history Current Complaints Leg weakness, shoulder pain, difficulty sleeping History of Current Condition Pt is a 71 year old female presenting to skilled therapy with a one year history of worsening LE weakness, which she then feels like is contributing to her shoulder pain. Pt reports that it all actually began because she has had difficulty finding a good mattress to sleep in, and her old mattress, suddenly about a year ago, began to hurt her body, and she would just be in pain upon getting up in the morning. Since that itme, she has tried six different mattresses, and has not found one that allows her to sleep comfortably. Notes just yesterday she had a sleep number delivered, and after only three hours, she got up to go to the bathroom and could barely move due to full body pain. In addition, she reports a history of vertigo, which is not currently a proble, but she is often very concerned about, and she feels that may contribute to her discomfort lying down. Pt has been sleeping mainly in a recliner since this began. Over this time, she feels the lack of sleep has caused increased weakness in deconditioning in her legs, especially her right leg. This , in turn, has caused her to need to use her UEs to push off of chairs or pull on grab bars to stand up, and she now has more pain and tightness across both of her upper traps . Treatment Goals Patient/Caregiver Goals Improve LE strength, decrease UE pain, improve sleep PT-OP-C Subjective Start: 07/25/22 15:08 Freq: Status: Active Protocol: Document 08/29/22 10:35 SP (Rec: 08/29/22 11:44 SP [id number]) OP-PT Subjective Patient Comments Patient Comments Pt reports compliant with HEP especially use of Tb. She reports tingling in L forearm and what can do to stop. Pt demonstrates forward head, rounded posture and little scapular winging. PT-OP-F Manual Assessment Start: 07/25/22 15:08 Freq: Status: Active Protocol: Document 07/25/22 12:00 DCW (Rec: 07/25/22 16:56 DCW [id number]) Manual Assessments Soft Tissue Assessment Soft Tissue Mobility Assessment Pt has what appears to be fairly severe muscle atrophy in a very specific area around the lateral head of her proximal gastroc. Additionally presents with significant tone R>L bilateral upper trap with tenderness to palpation 2 /4: Pain with wincing PT-OP-M Strength Start: 07/25/22 15:08 Freq: Status: Active Protocol: Document 07/25/22 12:00 DCW (Rec: 07/25/22 16:56 DCW [id number]) Hip Strength Hip Manual Muscle Testing Right Flexion (L2) 4- Good- Abduction 4- Good- Adduction 4- Good- Left Flexion (L2) 4 Good Abduction 4 Good Adduction 4 Good Knee Strength Knee Manual Muscle Testing Right Flexion (S2) 4- Good- Extension (L3) 4- Good- Left Flexion (S2) 4+ Good+ Extension (L3) 4+ Good+ PT-OP-Q Treatments Start: 07/25/22 15:08 Freq: Status: Active Protocol: Document 09/02/22 13:08 SP (Rec: 09/02/22 13:48 SP [id number]) Gym Equipment Shuttle Recovery Bilateral Heel Raises Details cued slow pacing and eccentric calf rails pause stretch Resistance 75#>62# Reps/Time x20 Unilateral Squats Details cued toe lift and drive through heel for proximal LE fac Resistance 50# Shuttle Recovery Platform Stable Reps/Time x25 Bilateral Squats Details Y TB around knees, mod cues knee alignment Resistance 75# Shuttle Recovery Platform Stable Reps/Time x25 Therapeutic Exercises Sitting Exercises STS Sitting Exercise Name initiated safety eccentric control Reps/Minutes x5 Comments cued hip hinge slow sit LAQ Sitting Exercise Name LAQ Side bilateral Resistance 5# Reps/Minutes 2x15, 2 sec hold Comments cued pause hold, scoot back in chair fully Standing Exercises Hamstring Curls Standing Exercise Name HS Curls Resistance 5# leg wts Reps/Minutes 10 reps, 5 reps before tires Comments cued posturing and knees // min cues tactile Other Exercises Resisted Ambulation Other Exercise Name Resisted side-stepping- HEP reviewed Resistance TB #3 loop ankles Reps/Minutes 20 ft x3 laps Neuro Re-Education Treatment Balance Activities andrade stepping Details fwd: step to, step over step Equipment 6 hurdles, with foam ovals Comments Improved feet //, cue for core trunk facilitation for imporved stability PT-OP-T Assessment and Plan Start: 07/25/22 15:08 Freq: Status: Active Protocol: Document 09/02/22 13:08 SP (Rec: 09/02/22 13:48 SP [id number]) Physical Therapy Assessment Goals Two Impairment Pt unable to perform sit<-> stand without UE assistance Prison Goal (LTG) Pt to perform sit<->stand without UE assist 5x in 20 seconds in order to show decreased reliance on UEs during transfers to assist in decreasing forceful motions through her shoulders. LTG Duration 09/24/22 One Impairment Pt does not have an appropriate home exercise program Short Term Goal (STG) Pt to be independent and compliant with an appropriate HEP STG Duration 08/24/22 Assessment Summary Assessment Pt improved trunk and knee alignment during band walk, andrade stepping, able to increase uneven surface and with cues for slower pacing and foot clearance decrease need for little support rail / therapist. Improved foot alignment. Physical Therapy Plan Frequency and Duration Frequency of Treatment 1-2x/week Plan of Care Start Date 07/25/22 Plan of Care End Date 09/24/22 Therapeutic Interventions Therapeutic Interventions Aquatic Therapy,Home Exercise Program,Joint Mobilizations, Manual Therapy,Neuromuscular Re-education,Patient/Caregiver Education,Self-Care/Home Management,Soft Tissue Mobilization,Therapeutic Activities,Therapeutic Exercises Modalities Cold Pack/Ice Massage,Electric Stimulation,Hot Packs, Ultrasound Next Visit Focus/Plan Next Note Type Treatment Note Next Visit Plan continue uneven surface functional strengthening. Add: R DF and R hip flexor strengthening support form hurdles. Assess if L forearm tingling if postural contributer. POC: LE strengthening with focus on quads and glutes, UT tone management
--- NOTE | 2022-09-04 13:00 | PT.OTN ---
Current Diagnoses Other chronic pain (09/04/22) Pain in unspecified joint (09/04/22) Myalgia, other site (09/04/22) Physical Therapy Treatment Note PT-OP-A Visit Information Start: 07/25/22 15:08 Freq: Status: Active Protocol: Document 09/04/22 12:17 SP (Rec: 09/04/22 13:03 SP [id number]) Out-Patient Physical Therapy Visit Information Visit Information Visit Type Treatment Note Visit Note JUANITO Kemp provided instructional support of ther ex to pt as needed under direct supervision and guidence EYELETTER Carla. Visit Start Time 12:17 Visit Stop Time 13:00 Total Visit Minutes 43 Visit Number 9 Number of EYELETTER Visits 3 Evaluation Information Evaluation Date 07/25/22 PT-OP-B Current Condition Start: 07/25/22 15:08 Freq: Status: Active Protocol: Document 07/25/22 12:00 DCW (Rec: 07/25/22 16:56 DCW [id number]) Current Condition History of Current Condition Onset Date One year history Current Complaints Leg weakness, shoulder pain, difficulty sleeping History of Current Condition Pt is a 71 year old female presenting to skilled therapy with a one year history of worsening LE weakness, which she then feels like is contributing to her shoulder pain. Pt reports that it all actually began because she has had difficulty finding a good mattress to sleep in, and her old mattress, suddenly about a year ago, began to hurt her body, and she would just be in pain upon getting up in the morning. Since that itme, she has tried six different mattresses, and has not found one that allows her to sleep comfortably. Notes just yesterday she had a sleep number delivered, and after only three hours, she got up to go to the bathroom and could barely move due to full body pain. In addition, she reports a history of vertigo, which is not currently a proble, but she is often very concerned about, and she feels that may contribute to her discomfort lying down. Pt has been sleeping mainly in a recliner since this began. Over this time, she feels the lack of sleep has caused increased weakness in deconditioning in her legs, especially her right leg. This , in turn, has caused her to need to use her UEs to push off of chairs or pull on grab bars to stand up, and she now has more pain and tightness across both of her upper traps . Treatment Goals Patient/Caregiver Goals Improve LE strength, decrease UE pain, improve sleep PT-OP-C Subjective Start: 07/25/22 15:08 Freq: Status: Active Protocol: Document 09/04/22 12:17 SP (Rec: 09/04/22 13:03 SP [id number]) OP-PT Subjective Patient Comments Patient Comments Pt stated leg tired after last tx. Pt stated still getting tingling in L UE. She reports her 2 general practioner retired and left practice ( [place] and in [place]), trying to get extablished. She didn't answer if her neurologist is aware of L arm tingling when asked. PT-OP-F Manual Assessment Start: 07/25/22 15:08 Freq: Status: Active Protocol: Document 07/25/22 12:00 DCW (Rec: 07/25/22 16:56 DCW [id number]) Manual Assessments Soft Tissue Assessment Soft Tissue Mobility Assessment Pt has what appears to be fairly severe muscle atrophy in a very specific area around the lateral head of her proximal gastroc. Additionally presents with significant tone R>L bilateral upper trap with tenderness to palpation 2 /4: Pain with wincing PT-OP-M Strength Start: 07/25/22 15:08 Freq: Status: Active Protocol: Document 07/25/22 12:00 DCW (Rec: 07/25/22 16:56 DCW [id number]) Hip Strength Hip Manual Muscle Testing Right Flexion (L2) 4- Good- Abduction 4- Good- Adduction 4- Good- Left Flexion (L2) 4 Good Abduction 4 Good Adduction 4 Good Knee Strength Knee Manual Muscle Testing Right Flexion (S2) 4- Good- Extension (L3) 4- Good- Left Flexion (S2) 4+ Good+ Extension (L3) 4+ Good+ PT-OP-Q Treatments Start: 07/25/22 15:08 Freq: Status: Active Protocol: Document 09/04/22 12:17 SP (Rec: 09/04/22 13:03 SP [id number]) Therapeutic Exercises Sitting Exercises spinal rotation Sitting Exercise Name arms across chest- assess response Side bilateral Resistance Tb #1 Equipment Used seated in chair Reps/Minutes x10 reps each direction Comments cued tall posture, sit front seat, slow rotation midline against resistance STS Sitting Exercise Name initiated safety eccentric control Reps/Minutes 5x STS 17sec Comments cued hip hinge slow sit Standing Exercises core step outs Standing Exercise Name trialed in PT Side bilateral Resistance TB #2 Equipment Used arms out front vs held at front abdomen- less tingle Reps/Minutes 5 reps Comments increased L arm tingling pec stretch Standing Exercise Name reviewed HEP (no HO wanted): various angles low>high Resistance doorway BUE Reps/Minutes 20 s x3 Comments Improves ROM with reps, does have little L UE tingling but lessens as reps Other Exercises Resisted Ambulation Other Exercise Name Resisted Fwd/Bwd/Lateral Resistance TB #3 loop ankles (next tx BTB ) Equipment Used near rail Reps/Minutes 20 ft x3 laps Comments improved // self corrections, cued increase trial LE clearance Self-Care/Home Management Treatment Education Patient Education Body Mechanics,Joint Protection,Pain Management, Posture Other Education Time spent use pillows supine under head/upper trunk and thighs (wedge elevate head to prevent vertigo) and sidesleeping between BLEs head raised as needed prevent vertigo. Stated hips hurt and L arm starts to tingle laying on L side so discontinued return to sit. Hasn't been able to sleep >4-6 hrs in bed before has to go to recliner chair for comfort hips and L arm and safety with vertigo. NO significant improvements. PT-OP-T Assessment and Plan Start: 07/25/22 15:08 Freq: Status: Active Protocol: Document 09/04/22 12:17 SP (Rec: 09/04/22 13:03 SP [id number]) Physical Therapy Assessment Goals Two Impairment Pt unable to perform sit<-> stand without UE assistance Halfway Goal (LTG) Pt to perform sit<->stand without UE assist 5x in 20 seconds in order to show decreased reliance on UEs during transfers to assist in decreasing forceful motions through her shoulders. 09/04/22: GOAL MET: 5x STS in 17 sec LTG Duration 09/24/22 MET GOAL One Impairment Pt does not have an appropriate home exercise program Short Term Goal (STG) Pt to be independent and compliant with an appropriate HEP 09/04/22: progressing: stand hIp abd, STS, wts LAQ, wall posture, pec stretch indoorway , resisted side stepping. STG Duration 08/24/22 progressing 09/04/22 Assessment Summary Assessment Pt not making significant gains in tingling in L arm and being ableto sleep in bed one of original complaints. She states is seeing gains in strength. She has increased stability and strength resisted side stepping and dynamic balance hurdles/uneven surface with less support and improved LE alignment, no LOB PRN contact support. Trialed spinal rotation seated good tolerance, standing isometric core step outs, increase tingling in L arm so stopped. Physical Therapy Plan Frequency and Duration Frequency of Treatment 1-2x/week Plan of Care Start Date 07/25/22 Plan of Care End Date 09/24/22 Therapeutic Interventions Therapeutic Interventions Aquatic Therapy,Home Exercise Program,Joint Mobilizations, Manual Therapy,Neuromuscular Re-education,Patient/Caregiver Education,Self-Care/Home Management,Soft Tissue Mobilization,Therapeutic Activities,Therapeutic Exercises Modalities Cold Pack/Ice Massage,Electric Stimulation,Hot Packs, Ultrasound Next Visit Focus/Plan Next Note Type Treatment Note Next Visit Plan Continue uneven surface functional strengthening. Assess if L forearm tingling if postural contributer. POC: LE strengthening with focus on quads and glutes, UT tone management
--- NOTE | 2022-09-05 16:56 | PT.OPPN ---
Addendum entered and electronically signed by Joss Pickens, PT 09/05/22 16:57: 10th visit progress note. Pt making good gains with strength, met and surpassed 5x sit to stand goal, which is helping decrease reliance on upper extremities when performing sit to stand. Pt continues to complain of pain and discomfort in full body with sleeping on any mattress, despite multiple changes. Significant improvement in right calf muscle atrophy. Overall, pt should continue to progress with skilled intervention. Original Note: Current Diagnoses Other chronic pain (09/04/22) Pain in unspecified joint (09/04/22) Myalgia, other site (09/04/22) Physical Therapy Progress Note PT-OP-A Visit Information Start: 07/25/22 15:08 Freq: Status: Active Protocol: Document 09/04/22 12:17 SP (Rec: 09/04/22 13:03 SP [id number]) Out-Patient Physical Therapy Visit Information Visit Information Visit Type Treatment Note Visit Note JUANITO Kemp provided instructional support of ther ex to pt as needed under direct supervision and guidence SET STAFF FITTER Carla. Visit Start Time 12:17 Visit Stop Time 13:00 Total Visit Minutes 43 Visit Number 9 Number of SET STAFF FITTER Visits 3 Evaluation Information Evaluation Date 07/25/22 PT-OP-B Current Condition Start: 07/25/22 15:08 Freq: Status: Active Protocol: Document 07/25/22 12:00 DCW (Rec: 07/25/22 16:56 DCW [id number]) Current Condition History of Current Condition Onset Date One year history Current Complaints Leg weakness, shoulder pain, difficulty sleeping History of Current Condition Pt is a 71 year old female presenting to skilled therapy with a one year history of worsening LE weakness, which she then feels like is contributing to her shoulder pain. Pt reports that it all actually began because she has had difficulty finding a good mattress to sleep in, and her old mattress, suddenly about a year ago, began to hurt her body, and she would just be in pain upon getting up in the morning. Since that itme, she has tried six different mattresses, and has not found one that allows her to sleep comfortably. Notes just yesterday she had a sleep number delivered, and after only three hours, she got up to go to the bathroom and could barely move due to full body pain. In addition, she reports a history of vertigo, which is not currently a proble, but she is often very concerned about, and she feels that may contribute to her discomfort lying down. Pt has been sleeping mainly in a recliner since this began. Over this time, she feels the lack of sleep has caused increased weakness in deconditioning in her legs, especially her right leg. This , in turn, has caused her to need to use her UEs to push off of chairs or pull on grab bars to stand up, and she now has more pain and tightness across both of her upper traps . Treatment Goals Patient/Caregiver Goals Improve LE strength, decrease UE pain, improve sleep PT-OP-C Subjective Start: 07/25/22 15:08 Freq: Status: Active Protocol: Document 09/04/22 12:17 SP (Rec: 09/04/22 13:03 SP [id number]) OP-PT Subjective Patient Comments Patient Comments Pt stated leg tired after last tx. Pt stated still getting tingling in L UE. She reports her 2 general practioner retired and left practice ( [place] and in [place]), trying to get extablished. She didn't answer if her neurologist is aware of L arm tingling when asked. PT-OP-F Manual Assessment Start: 07/25/22 15:08 Freq: Status: Active Protocol: Document 07/25/22 12:00 DCW (Rec: 07/25/22 16:56 DCW [id number]) Manual Assessments Soft Tissue Assessment Soft Tissue Mobility Assessment Pt has what appears to be fairly severe muscle atrophy in a very specific area around the lateral head of her proximal gastroc. Additionally presents with significant tone R>L bilateral upper trap with tenderness to palpation 2 /4: Pain with wincing PT-OP-M Strength Start: 07/25/22 15:08 Freq: Status: Active Protocol: Document 07/25/22 12:00 DCW (Rec: 07/25/22 16:56 DCW [id number]) Hip Strength Hip Manual Muscle Testing Right Flexion (L2) 4- Good- Abduction 4- Good- Adduction 4- Good- Left Flexion (L2) 4 Good Abduction 4 Good Adduction 4 Good Knee Strength Knee Manual Muscle Testing Right Flexion (S2) 4- Good- Extension (L3) 4- Good- Left Flexion (S2) 4+ Good+ Extension (L3) 4+ Good+ PT-OP-T Assessment and Plan Start: 07/25/22 15:08 Freq: Status: Active Protocol: Document 09/04/22 12:17 SP (Rec: 09/04/22 13:03 SP [id number]) Physical Therapy Assessment Goals Two Impairment Pt unable to perform sit<-> stand without UE assistance Senior Living Goal (LTG) Pt to perform sit<->stand without UE assist 5x in 20 seconds in order to show decreased reliance on UEs during transfers to assist in decreasing forceful motions through her shoulders. 09/04/22: GOAL MET: 5x STS in 17 sec LTG Duration 09/24/22 MET GOAL One Impairment Pt does not have an appropriate home exercise program Short Term Goal (STG) Pt to be independent and compliant with an appropriate HEP 09/04/22: progressing: stand hIp abd, STS, wts LAQ, wall posture, pec stretch indoorway , resisted side stepping. STG Duration 08/24/22 progressing 09/04/22 Assessment Summary Assessment Pt not making significant gains in tingling in L arm and being ableto sleep in bed one of original complaints. She states is seeing gains in strength. She has increased stability and strength resisted side stepping and dynamic balance hurdles/uneven surface with less support and improved LE alignment, no LOB PRN contact support. Trialed spinal rotation seated good tolerance, standing isometric core step outs, increase tingling in L arm so stopped. Physical Therapy Plan Frequency and Duration Frequency of Treatment 1-2x/week Plan of Care Start Date 07/25/22 Plan of Care End Date 09/24/22 Therapeutic Interventions Therapeutic Interventions Aquatic Therapy,Home Exercise Program,Joint Mobilizations, Manual Therapy,Neuromuscular Re-education,Patient/Caregiver Education,Self-Care/Home Management,Soft Tissue Mobilization,Therapeutic Activities,Therapeutic Exercises Modalities Cold Pack/Ice Massage,Electric Stimulation,Hot Packs, Ultrasound Next Visit Focus/Plan Next Note Type Treatment Note Next Visit Plan Continue uneven surface functional strengthening. Assess if L forearm tingling if postural contributer. POC: LE strengthening with focus on quads and glutes, UT tone management
--- NOTE | 2022-09-09 13:45 | PT.OTN ---
Current Diagnoses Other chronic pain (09/09/22) Pain in unspecified joint (09/09/22) Myalgia, other site (09/09/22) Physical Therapy Treatment Note PT-OP-A Visit Information Start: 07/25/22 15:08 Freq: Status: Active Protocol: Document 09/09/22 13:03 SP (Rec: 09/09/22 13:52 SP [id number]) Out-Patient Physical Therapy Visit Information Visit Information Visit Type Treatment Note Visit Start Time 13:03 Visit Stop Time 13:45 Total Visit Minutes 42 Visit Number 10 Number of OPERATIONS PLANNER Visits 4 Evaluation Information Evaluation Date 07/25/22 PT-OP-B Current Condition Start: 07/25/22 15:08 Freq: Status: Active Protocol: Document 07/25/22 12:00 DCW (Rec: 07/25/22 16:56 DCW [id number]) Current Condition History of Current Condition Onset Date One year history Current Complaints Leg weakness, shoulder pain, difficulty sleeping History of Current Condition Pt is a 71 year old female presenting to skilled therapy with a one year history of worsening LE weakness, which she then feels like is contributing to her shoulder pain. Pt reports that it all actually began because she has had difficulty finding a good mattress to sleep in, and her old mattress, suddenly about a year ago, began to hurt her body, and she would just be in pain upon getting up in the morning. Since that itme, she has tried six different mattresses, and has not found one that allows her to sleep comfortably. Notes just yesterday she had a sleep number delivered, and after only three hours, she got up to go to the bathroom and could barely move due to full body pain. In addition, she reports a history of vertigo, which is not currently a proble, but she is often very concerned about, and she feels that may contribute to her discomfort lying down. Pt has been sleeping mainly in a recliner since this began. Over this time, she feels the lack of sleep has caused increased weakness in deconditioning in her legs, especially her right leg. This , in turn, has caused her to need to use her UEs to push off of chairs or pull on grab bars to stand up, and she now has more pain and tightness across both of her upper traps . Treatment Goals Patient/Caregiver Goals Improve LE strength, decrease UE pain, improve sleep PT-OP-C Subjective Start: 07/25/22 15:08 Freq: Status: Active Protocol: Document 09/09/22 13:03 SP (Rec: 09/09/22 13:52 SP [id number]) OP-PT Subjective Patient Comments Patient Comments Pt reported was dizzy like on a boat for 2 days after tx time spent sleeping use pillow support, required med assist. She stated needs to take medication prior if need to perform these activities to prevent lasting dizziness. L arm is better, tingling down arm doesn't last as long, especially if not WB on it and better if conscious of posture. She states getting out of chair with out arms is better but still has to use momentum and hip hinge quite a bit, not back to her PLOF wishes. She also reports her endurance walking is still limiting, challenged longer distances shopping trip with family, really tiring. She is concerned R lateral gastroc decreased tone but notices is better. PT-OP-F Manual Assessment Start: 07/25/22 15:08 Freq: Status: Active Protocol: Document 07/25/22 12:00 DCW (Rec: 07/25/22 16:56 DCW [id number]) Manual Assessments Soft Tissue Assessment Soft Tissue Mobility Assessment Pt has what appears to be fairly severe muscle atrophy in a very specific area around the lateral head of her proximal gastroc. Additionally presents with significant tone R>L bilateral upper trap with tenderness to palpation 2 /4: Pain with wincing PT-OP-M Strength Start: 07/25/22 15:08 Freq: Status: Active Protocol: Document 07/25/22 12:00 DCW (Rec: 07/25/22 16:56 DC [id number]) Hip Strength Hip Manual Muscle Testing Right Flexion (L2) 4- Good- Abduction 4- Good- Adduction 4- Good- Left Flexion (L2) 4 Good Abduction 4 Good Adduction 4 Good Knee Strength Knee Manual Muscle Testing Right Flexion (S2) 4- Good- Extension (L3) 4- Good- Left Flexion (S2) 4+ Good+ Extension (L3) 4+ Good+ PT-OP-Q Treatments Start: 07/25/22 15:08 Freq: Status: Active Protocol: Document 09/09/22 13:03 SP (Rec: 09/09/22 13:52 SP [id number]) Therapeutic Exercises Sitting Exercises STS Sitting Exercise Name initiated safety and strengthening eccentric control Reps/Minutes much time spend ed and performance Comments cued hip hinge slow sit, LAQ Sitting Exercise Name LAQ- verbal review today Side bilateral Resistance 5# Reps/Minutes 2x15, 2 sec hold Comments cued pause hold, scoot back in chair fully Standing Exercises heel raises Standing Exercise Name added to HEP Equipment Used rail Reps/Minutes x20 Comments good effort and response Hamstring Curls Standing Exercise Name HS Curls Resistance 5# leg wts Reps/Minutes discuss at at home at counter Comments cued posturing and knees // min cues tactile Other Exercises Resisted Ambulation Other Exercise Name Resisted Fwd/Bwd/Lateral Resistance TB #3> Blue TB at loop ankles Equipment Used near rail Reps/Minutes 20 ft x4 laps Comments cued increase trial LE clearance Self-Care/Home Management Treatment Education Patient Education Body Mechanics,Home Exercise Program,Posture Other Education Time spent on body and alignment mechanics with STS without use of UEs and hip hinge needed at the time to allow progress safe pacing in/ out chair toward to normal performance, her personal goal . PT-OP-T Assessment and Plan Start: 07/25/22 15:08 Freq: Status: Active Protocol: Document 09/09/22 13:03 SP (Rec: 09/09/22 13:52 SP [id number]) Physical Therapy Assessment Goals Two Impairment Pt unable to perform sit<-> stand without UE assistance Sales Representative [employer] Goal (LTG) Pt to perform sit<->stand without UE assist 5x in 20 seconds in order to show decreased reliance on UEs during transfers to assist in decreasing forceful motions through her shoulders. 09/04/22: GOAL MET: 5x STS in 17 sec without UE support, mesh chair. LTG Duration MET GOAL 09/04/22 One Impairment Pt does not have an appropriate home exercise program Short Term Goal (STG) Pt to be independent and compliant with an appropriate HEP 09/04/22: progressing: stand hIp abd, STS, wts LAQ, wall posture, pec stretch indoorway , resisted side stepping. 09/09/22: added standing heel raises and weighted HS curls. STG Duration 08/24/22 progressing 09/09/22 Assessment Summary Assessment Pt habitually uses her hands to come to standing/sitting flops into chair, improved with cues. Even after resisted f/b/lateral gait at rail, is able to complete STS from 18 chair without UEs but does have to hip hinge more. Extra time spent discussion need be mindful slower pacing to allow LEs/core for support controlled sitting with ability to perform during tx, mindfulness though if to many B knees do start to hurt. Pt would like to walk longer distances without tiring quickly to allow shopping with family. Pt continues to have tingling down L arm during STS. Physical Therapy Plan Frequency and Duration Frequency of Treatment 1-2x/week Plan of Care Start Date 07/25/22 Plan of Care End Date 09/24/22 Therapeutic Interventions Therapeutic Interventions Aquatic Therapy,Home Exercise Program,Joint Mobilizations, Manual Therapy,Neuromuscular Re-education,Patient/Caregiver Education,Self-Care/Home Management,Soft Tissue Mobilization,Therapeutic Activities,Therapeutic Exercises Modalities Cold Pack/Ice Massage,Electric Stimulation,Hot Packs, Ultrasound Next Visit Focus/Plan Next Note Type Treatment Note Next Visit Plan Assess if L forearm tingling if postural contributer. Continue uneven surface functional strengthening. No goal or intevention in regard to gait progression. Maybe assessment of SLS to give pt ability to understand hip abd strengthening self feedback progressing or 6MWT baseline if she plans to continue PT. POC: LE strengthening with focus on quads and glutes, UT tone management
--- NOTE | 2022-09-11 11:18 | PT.OTN ---
Current Diagnoses Other chronic pain (09/11/22) Pain in unspecified joint (09/11/22) Myalgia, other site (09/11/22) Physical Therapy Treatment Note PT-OP-A Visit Information Start: 07/25/22 15:08 Freq: Status: Active Protocol: Document 09/11/22 10:30 DCW (Rec: 09/11/22 11:18 DCW [id number]) Out-Patient Physical Therapy Visit Information Visit Information Visit Type Treatment Note Visit Start Time 10:30 Visit Stop Time 11:15 Total Visit Minutes 45 Visit Number 11 Number of WEIR FISHERMAN Visits 0 Evaluation Information Evaluation Date 07/25/22 PT-OP-B Current Condition Start: 07/25/22 15:08 Freq: Status: Active Protocol: Document 07/25/22 12:00 DCW (Rec: 07/25/22 16:56 DCW [id number]) Current Condition History of Current Condition Onset Date One year history Current Complaints Leg weakness, shoulder pain, difficulty sleeping History of Current Condition Pt is a 71 year old female presenting to skilled therapy with a one year history of worsening LE weakness, which she then feels like is contributing to her shoulder pain. Pt reports that it all actually began because she has had difficulty finding a good mattress to sleep in, and her old mattress, suddenly about a year ago, began to hurt her body, and she would just be in pain upon getting up in the morning. Since that itme, she has tried six different mattresses, and has not found one that allows her to sleep comfortably. Notes just yesterday she had a sleep number delivered, and after only three hours, she got up to go to the bathroom and could barely move due to full body pain. In addition, she reports a history of vertigo, which is not currently a proble, but she is often very concerned about, and she feels that may contribute to her discomfort lying down. Pt has been sleeping mainly in a recliner since this began. Over this time, she feels the lack of sleep has caused increased weakness in deconditioning in her legs, especially her right leg. This , in turn, has caused her to need to use her UEs to push off of chairs or pull on grab bars to stand up, and she now has more pain and tightness across both of her upper traps . Treatment Goals Patient/Caregiver Goals Improve LE strength, decrease UE pain, improve sleep PT-OP-C Subjective Start: 07/25/22 15:08 Freq: Status: Active Protocol: Document 09/11/22 10:30 DCW (Rec: 09/11/22 11:18 DCW [id number]) OP-PT Subjective Patient Comments Patient Comments I want to get my core stronger so that I don't just drop down when I try to sit down. PT-OP-F Manual Assessment Start: 07/25/22 15:08 Freq: Status: Active Protocol: Document 07/25/22 12:00 DCW (Rec: 07/25/22 16:56 DCW [id number]) Manual Assessments Soft Tissue Assessment Soft Tissue Mobility Assessment Pt has what appears to be fairly severe muscle atrophy in a very specific area around the lateral head of her proximal gastroc. Additionally presents with significant tone R>L bilateral upper trap with tenderness to palpation 2 /4: Pain with wincing PT-OP-M Strength Start: 07/25/22 15:08 Freq: Status: Active Protocol: Document 07/25/22 12:00 DCW (Rec: 07/25/22 16:56 DCW [id number]) Hip Strength Hip Manual Muscle Testing Right Flexion (L2) 4- Good- Abduction 4- Good- Adduction 4- Good- Left Flexion (L2) 4 Good Abduction 4 Good Adduction 4 Good Knee Strength Knee Manual Muscle Testing Right Flexion (S2) 4- Good- Extension (L3) 4- Good- Left Flexion (S2) 4+ Good+ Extension (L3) 4+ Good+ PT-OP-Q Treatments Start: 07/25/22 15:08 Freq: Status: Active Protocol: Document 09/11/22 10:30 DCW (Rec: 09/11/22 11:18 DCW [id number]) Gym Equipment Therapeutic Ball Pelvic Circles Exercise Details Pelvic Circles Ball Size/Color Green - 65 cm Body Position Sitting Pelvic Tilt Exercise Details Lateral, PPT Ball Size/Color Green - 65 cm Body Position Sitting Therapeutic Exercises Standing Exercises PPT Standing Exercise Name PPT /c TrA against wall Pallof Press Standing Exercise Name Pallof Press Side bilateral Resistance Lv 3 PT-OP-T Assessment and Plan Start: 07/25/22 15:08 Freq: Status: Active Protocol: Document 09/11/22 10:30 DCW (Rec: 09/11/22 11:18 DCW [id number]) Physical Therapy Assessment Goals Two Impairment Pt unable to perform sit<-> stand without UE assistance Manager Quantitative Goal (LTG) Pt to perform sit<->stand without UE assist 5x in 20 seconds in order to show decreased reliance on UEs during transfers to assist in decreasing forceful motions through her shoulders. 09/04/22: GOAL MET: 5x STS in 17 sec without UE support, mesh chair. LTG Duration MET GOAL 09/04/22 One Impairment Pt does not have an appropriate home exercise program Short Term Goal (STG) Pt to be independent and compliant with an appropriate HEP 09/04/22: progressing: stand hIp abd, STS, wts LAQ, wall posture, pec stretch indoorway , resisted side stepping. 09/09/22: added standing heel raises and weighted HS curls. STG Duration 08/24/22 progressing 09/09/22 Assessment Summary Assessment Focused mainly today on increased core strengthening and HEP additions, working toward HEP independence. Physical Therapy Plan Frequency and Duration Frequency of Treatment 1-2x/week Plan of Care Start Date 07/25/22 Plan of Care End Date 09/24/22 Therapeutic Interventions Therapeutic Interventions Aquatic Therapy,Home Exercise Program,Joint Mobilizations, Manual Therapy,Neuromuscular Re-education,Patient/Caregiver Education,Self-Care/Home Management,Soft Tissue Mobilization,Therapeutic Activities,Therapeutic Exercises Modalities Cold Pack/Ice Massage,Electric Stimulation,Hot Packs, Ultrasound Next Visit Focus/Plan Next Note Type Treatment Note Next Visit Plan Assess if L forearm tingling if postural contributer. Continue uneven surface functional strengthening. No goal or intervention in regard to gait progression. Maybe assessment of SLS to give pt ability to understand hip abd strengthening self feedback progressing or 6MWT baseline if she plans to continue PT. POC: LE strengthening with focus on quads and glutes, UT tone management
--- NOTE | 2022-09-18 12:50 | PT.OTN ---
Current Diagnoses Other chronic pain (09/18/22) Pain in unspecified joint (09/18/22) Myalgia, other site (09/18/22) Physical Therapy Treatment Note PT-OP-A Visit Information Start: 07/25/22 15:08 Freq: Status: Active Protocol: Document 09/18/22 11:55 DCW (Rec: 09/18/22 12:49 DCW [id number]) Out-Patient Physical Therapy Visit Information Visit Information Visit Type Treatment Note Visit Start Time 11:55 Visit Stop Time 12:45 Total Visit Minutes 50 Visit Number 12 Number of CASTING FINISHER Visits 0 Evaluation Information Evaluation Date 07/25/22 PT-OP-B Current Condition Start: 07/25/22 15:08 Freq: Status: Active Protocol: Document 07/25/22 12:00 DCW (Rec: 07/25/22 16:56 DCW [id number]) Current Condition History of Current Condition Onset Date One year history Current Complaints Leg weakness, shoulder pain, difficulty sleeping History of Current Condition Pt is a 71 year old female presenting to skilled therapy with a one year history of worsening LE weakness, which she then feels like is contributing to her shoulder pain. Pt reports that it all actually began because she has had difficulty finding a good mattress to sleep in, and her old mattress, suddenly about a year ago, began to hurt her body, and she would just be in pain upon getting up in the morning. Since that itme, she has tried six different mattresses, and has not found one that allows her to sleep comfortably. Notes just yesterday she had a sleep number delivered, and after only three hours, she got up to go to the bathroom and could barely move due to full body pain. In addition, she reports a history of vertigo, which is not currently a proble, but she is often very concerned about, and she feels that may contribute to her discomfort lying down. Pt has been sleeping mainly in a recliner since this began. Over this time, she feels the lack of sleep has caused increased weakness in deconditioning in her legs, especially her right leg. This , in turn, has caused her to need to use her UEs to push off of chairs or pull on grab bars to stand up, and she now has more pain and tightness across both of her upper traps . Treatment Goals Patient/Caregiver Goals Improve LE strength, decrease UE pain, improve sleep PT-OP-C Subjective Start: 07/25/22 15:08 Freq: Status: Active Protocol: Document 09/18/22 11:55 DCW (Rec: 09/18/22 12:49 DCW [id number]) OP-PT Subjective Patient Comments Patient Comments I'm just trying to avoid everyone who is getting sick around me. PT-OP-F Manual Assessment Start: 07/25/22 15:08 Freq: Status: Active Protocol: Document 07/25/22 12:00 DCW (Rec: 07/25/22 16:56 DCW [id number]) Manual Assessments Soft Tissue Assessment Soft Tissue Mobility Assessment Pt has what appears to be fairly severe muscle atrophy in a very specific area around the lateral head of her proximal gastroc. Additionally presents with significant tone R>L bilateral upper trap with tenderness to palpation 2 /4: Pain with wincing PT-OP-M Strength Start: 07/25/22 15:08 Freq: Status: Active Protocol: Document 07/25/22 12:00 DCW (Rec: 07/25/22 16:56 DCW [id number]) Hip Strength Hip Manual Muscle Testing Right Flexion (L2) 4- Good- Abduction 4- Good- Adduction 4- Good- Left Flexion (L2) 4 Good Abduction 4 Good Adduction 4 Good Knee Strength Knee Manual Muscle Testing Right Flexion (S2) 4- Good- Extension (L3) 4- Good- Left Flexion (S2) 4+ Good+ Extension (L3) 4+ Good+ PT-OP-Q Treatments Start: 07/25/22 15:08 Freq: Status: Active Protocol: Document 09/18/22 11:55 DCW (Rec: 09/18/22 12:49 DCW [id number]) Cardio Equipment Recumbent Elliptical ([employer]) Duration (Minutes) 6 Resistance 5 Seat Position 10 Therapeutic Exercises Standing Exercises PPT Standing Exercise Name PPT /c TrA Therapeutic Activity Therapeutic Activity Sit to Stand Name StS Comments Limit UE use, repeated VCs for positioning, towel roll to keep knees apart Self-Care/Home Management Treatment Education Other Education Pt edu for positioning when driving car, going out to car for adjustment of seat and steering wheel, edu for shoulder posture and positioning. PT-OP-T Assessment and Plan Start: 07/25/22 15:08 Freq: Status: Active Protocol: Document 09/18/22 11:55 DCW (Rec: 09/18/22 12:49 DCW [id number]) Physical Therapy Assessment Goals Two Impairment Pt unable to perform sit<-> stand without UE assistance Purchasing And Claims Supervisor Goal (LTG) Pt to perform sit<->stand without UE assist 5x in 20 seconds in order to show decreased reliance on UEs during transfers to assist in decreasing forceful motions through her shoulders. 09/04/22: GOAL MET: 5x STS in 17 sec without UE support, mesh chair. LTG Duration MET GOAL 09/04/22 One Impairment Pt does not have an appropriate home exercise program Short Term Goal (STG) Pt to be independent and compliant with an appropriate HEP 09/04/22: progressing: stand hIp abd, STS, wts LAQ, wall posture, pec stretch indoorway , resisted side stepping. 09/09/22: added standing heel raises and weighted HS curls. STG Duration 08/24/22 progressing 09/09/22 Assessment Summary Assessment Much of today spent reviewing HEP, discussing posture, and assessing pt positioning while driving car. Pt notes understanding of all areas, would like one more visit next week to ensure she has complete understanding and has had toime to trial new suggestions. Physical Therapy Plan Frequency and Duration Frequency of Treatment 1-2x/week Plan of Care Start Date 07/25/22 Plan of Care End Date 09/24/22 Therapeutic Interventions Therapeutic Interventions Aquatic Therapy,Home Exercise Program,Joint Mobilizations, Manual Therapy,Neuromuscular Re-education,Patient/Caregiver Education,Self-Care/Home Management,Soft Tissue Mobilization,Therapeutic Activities,Therapeutic Exercises Modalities Cold Pack/Ice Massage,Electric Stimulation,Hot Packs, Ultrasound Next Visit Focus/Plan Next Note Type Treatment Note Next Visit Plan Assess if L forearm tingling if postural contributer. Continue uneven surface functional strengthening. No goal or intervention in regard to gait progression. Maybe assessment of SLS to give pt ability to understand hip abd strengthening self feedback progressing or 6MWT baseline if she plans to continue PT. POC: LE strengthening with focus on quads and glutes, UT tone management
--- NOTE | 2022-09-25 10:16 | PT.OTN ---
Current Diagnoses Other chronic pain (09/25/22) Pain in unspecified joint (09/25/22) Myalgia, other site (09/25/22) Physical Therapy Treatment Note PT-OP-A Visit Information Start: 07/25/22 15:08 Freq: Status: Active Protocol: Document 09/25/22 09:45 DCW (Rec: 09/25/22 10:16 DCW [id number]) Out-Patient Physical Therapy Visit Information Visit Information Visit Type Discharge Summary Visit Start Time 09:45 Visit Stop Time 11:10 Total Visit Minutes 25 Visit Number 13 Number of GUIDANCE ADVISER Visits 0 Evaluation Information Evaluation Date 07/25/22 PT-OP-B Current Condition Start: 07/25/22 15:08 Freq: Status: Active Protocol: Document 07/25/22 12:00 DCW (Rec: 07/25/22 16:56 DCW [id number]) Current Condition History of Current Condition Onset Date One year history Current Complaints Leg weakness, shoulder pain, difficulty sleeping History of Current Condition Pt is a 71 year old female presenting to skilled therapy with a one year history of worsening LE weakness, which she then feels like is contributing to her shoulder pain. Pt reports that it all actually began because she has had difficulty finding a good mattress to sleep in, and her old mattress, suddenly about a year ago, began to hurt her body, and she would just be in pain upon getting up in the morning. Since that itme, she has tried six different mattresses, and has not found one that allows her to sleep comfortably. Notes just yesterday she had a sleep number delivered, and after only three hours, she got up to go to the bathroom and could barely move due to full body pain. In addition, she reports a history of vertigo, which is not currently a proble, but she is often very concerned about, and she feels that may contribute to her discomfort lying down. Pt has been sleeping mainly in a recliner since this began. Over this time, she feels the lack of sleep has caused increased weakness in deconditioning in her legs, especially her right leg. This , in turn, has caused her to need to use her UEs to push off of chairs or pull on grab bars to stand up, and she now has more pain and tightness across both of her upper traps . Treatment Goals Patient/Caregiver Goals Improve LE strength, decrease UE pain, improve sleep PT-OP-C Subjective Start: 07/25/22 15:08 Freq: Status: Active Protocol: Document 09/25/22 09:45 DCW (Rec: 09/25/22 10:16 DCW [id number]) OP-PT Subjective Patient Comments Patient Comments Pt still experiencing pain in her left arm, did not benefit from change of seat positioning in vehicle. PT-OP-F Manual Assessment Start: 07/25/22 15:08 Freq: Status: Active Protocol: Document 07/25/22 12:00 DCW (Rec: 07/25/22 16:56 DCW [id number]) Manual Assessments Soft Tissue Assessment Soft Tissue Mobility Assessment Pt has what appears to be fairly severe muscle atrophy in a very specific area around the lateral head of her proximal gastroc. Additionally presents with significant tone R>L bilateral upper trap with tenderness to palpation 2 /4: Pain with wincing PT-OP-M Strength Start: 07/25/22 15:08 Freq: Status: Active Protocol: Document 07/25/22 12:00 DCW (Rec: 07/25/22 16:56 DCW [id number]) Hip Strength Hip Manual Muscle Testing Right Flexion (L2) 4- Good- Abduction 4- Good- Adduction 4- Good- Left Flexion (L2) 4 Good Abduction 4 Good Adduction 4 Good Knee Strength Knee Manual Muscle Testing Right Flexion (S2) 4- Good- Extension (L3) 4- Good- Left Flexion (S2) 4+ Good+ Extension (L3) 4+ Good+ PT-OP-Q Treatments Start: 07/25/22 15:08 Freq: Status: Active Protocol: Document 09/25/22 09:45 DCW (Rec: 09/25/22 10:16 DCW [id number]) Cardio Equipment Recumbent Elliptical ([employer]) Duration (Minutes) 6 Resistance 5 Seat Position 10 Therapeutic Exercises Standing Exercises pec stretch Standing Exercise Name reviewed HEP Resistance doorway BUE Therapeutic Activity Therapeutic Activity Sit to Stand Name StS Comments Limit UE use, repeated VCs for positioning Self-Care/Home Management Treatment Education Other Education Edu on continuing HEP, UE strengthening with home weights PT-OP-T Assessment and Plan Start: 07/25/22 15:08 Freq: Status: Active Protocol: Document 09/25/22 09:45 DCW (Rec: 09/25/22 10:16 DCW [id number]) Physical Therapy Assessment Goals Two Impairment Pt unable to perform sit<-> stand without UE assistance Valve Tester Goal (LTG) Pt to perform sit<->stand without UE assist 5x in 20 seconds in order to show decreased reliance on UEs during transfers to assist in decreasing forceful motions through her shoulders. LTG Duration MET GOAL 09/04/22 One Impairment Pt does not have an appropriate home exercise program Short Term Goal (STG) Pt to be independent and compliant with an appropriate HEP STG Duration Met Assessment Summary Assessment Pt has met goals, will be discharged from skilled therapy at this time. Unfortunately, pt does continue to have complaints of radicular UE symptoms, did not respond well to therapy. Physical Therapy Plan Frequency and Duration Frequency of Treatment 1x/Week Plan of Care Start Date 09/25/22 Plan of Care End Date 09/26/22 Therapeutic Interventions Therapeutic Interventions Aquatic Therapy,Home Exercise Program,Joint Mobilizations, Manual Therapy,Neuromuscular Re-education,Patient/Caregiver Education,Self-Care/Home Management,Soft Tissue Mobilization,Therapeutic Activities,Therapeutic Exercises Modalities Cold Pack/Ice Massage,Electric Stimulation,Hot Packs, Ultrasound Discharge Physical Therapy Discharge Reasons Goals Met Next Visit Focus/Plan Next Note Type Discharge Summary
--- NOTE | 2022-09-25 10:16 | PT.OPPOC ---
Physical, Occupational & Speech Therapy At [facility] Current Diagnoses Other chronic pain (09/25/22) Pain in unspecified joint (09/25/22) Myalgia, other site (09/25/22) Visit Care Team Role Provider Type SAMINA Scott Family Provider Non-Staff Primary Care Provider Specialty: Family Practice Address: [address] [place] [address] [address], [place], [address] Email: Tangela Telles MD Attending Provider Non-Staff Referring Provider Specialty: Neurology Address: [address] [place] [address], [id number] Email: Plan Of Care PT-OP-T Assessment and Plan Start: 07/25/22 15:08 Freq: Status: Active Protocol: Document 09/25/22 09:45 DCW (Rec: 09/25/22 10:16 DCW [id number]) Physical Therapy Assessment Goals Two Impairment Pt unable to perform sit<-> stand without UE assistance Licensed Pesticide Applicator Goal (LTG) Pt to perform sit<->stand without UE assist 5x in 20 seconds in order to show decreased reliance on UEs during transfers to assist in decreasing forceful motions through her shoulders. LTG Duration MET GOAL 09/04/22 One Impairment Pt does not have an appropriate home exercise program Short Term Goal (STG) Pt to be independent and compliant with an appropriate HEP STG Duration Met Assessment Summary Assessment Pt has met goals, will be discharged from skilled therapy at this time. Unfortunately, pt does continue to have complaints of radicular UE symptoms, did not respond well to therapy. Physical Therapy Plan Frequency and Duration Frequency of Treatment 1x/Week Plan of Care Start Date 09/25/22 Plan of Care End Date 09/26/22 Therapeutic Interventions Therapeutic Interventions Aquatic Therapy,Home Exercise Program,Joint Mobilizations, Manual Therapy,Neuromuscular Re-education,Patient/Caregiver Education,Self-Care/Home Management,Soft Tissue Mobilization,Therapeutic Activities,Therapeutic Exercises Modalities Cold Pack/Ice Massage,Electric Stimulation,Hot Packs, Ultrasound Discharge Physical Therapy Discharge Reasons Goals Met Next Visit Focus/Plan Next Note Type Discharge Summary Plan of Care Dates Plan of Care Start Date 09/25/22 Plan of Care End Date 09/26/22 Electronically Signed by: Joss Pickens, NISHA 09/25/22 1016 If you are in agreement with this Plan of Care, please return a signed and dated copy. I have reviewed this Plan of Care and certify that the skilled therapy services above are required to meet the patient?s needs. Physician Signature Date Printed Name and Credentials Clinical Instructor Signature Printed Name and Credentials
== END 2022-09-29 14:31 | disposition home or self-care (01) ==
LOC: PHYS 09:45
PROVIDERS: Family Provider Registered Nurse; PCP Registered Nurse; Referring Provider Psychiatry & Neurology Neurology; Visit Provider Psychiatry & Neurology Neurology
DX: M25.50 Pain in unspecified joint (principal); G89.29 Other chronic pain; M79.18 Myalgia, other site
CPT/HCPCS: 97110; 97112; 97140; 97161; 97530; 97535

== ENCOUNTER → 2025-02-02 14:49 | Outpatient (CLI) | payer MEDICARE, OTHER, SELFPAY ==
--- NOTE | 2025-02-02 14:53 | DI.MG.S_ITS ---
MM screening mammo BI: 02/02/2025. BI-RADS: 2 CLINICAL: 74-year old female for bilateral screening mammogram. Tyrer-Cuzick lifetime risk of 4.5%. No personal or first-degree family history of breast cancer. The patient had a prior right breast biopsy. PRIOR EXAMS: 02/04/2023, 02/05/2022, 10/01/2020, 09/11/2020. MAMMOGRAPHY TECHNIQUE: 2D and 3D (tomosynthesis) digital mammographic views obtained, with additional images as needed for full coverage. Current study was also evaluated with a Computer Aided Detection (CAD) system. DENSITY B. There are scattered areas of fibroglandular density. MAMMOGRAPHY FINDINGS Right: Biopsy marker present on the right. There are no suspicious masses, calcifications, or other findings in the breast. No significant change from comparison. Left: No suspicious mass, asymmetry, microcalcification, or other abnormality seen. No significant change from comparison. IMPRESSION: Right * No evidence of malignancy with benign findings. Left * No evidence of malignancy. RECOMMENDATIONS Bilateral * Annual screening mammography. OVERALL ASSESSMENT CATEGORY BI-RADS-2: Benign. [employer] recommends annual screening mammography beginning at age 40 for women with average risk of breast cancer. ELECTRONICALLY SIGNED: Eve Han M.D. on 02/03/2025 at 02:54:58 PM PT Interpreting Station ID: [id number]
== END ==
PROVIDERS: Family Provider Registered Nurse; PCP Nurse Practitioner Family; Referring Provider Nurse Practitioner Family; Visit Provider Nurse Practitioner Family
DX: Z12.31 Encounter for screening mammogram for malignant neoplasm of breast (principal)
CPT/HCPCS: 77063; 77067